=== PATIENT | female | born 1970 | race Hispanic/Latino ===

== ENCOUNTER → 2024-01-13 | Day surgery (SDC) | payer OTHER ==
[~2024-01-13] MED LIST: HYOSCYAMINE SULFATE 0.5 MG/ML INJ ONE; KETAMINE HCL INJ 50 MG/ML 10 ML VIAL ONE; LIDOCAINE HCL 2% LOCAL INJ 5 ML SDV VIAL INJ ONE; LIPITOR10 MG PO; PROPOFOL IV EMULSION 10 MG/ML 50 ML VIAL IV ONE
[2024-01-13] MEDS: LACTATED RINGER'S 1,000 ML ONE (13:05)
[2024-01-13 14:18] VITALS: TEMP 97.7
[2024-01-13 14:45] VITALS: BP 137/78; PULSE 76; RESP 16; O2SAT 98
== END | disposition home or self-care (01) ==
LOC: OR 12:15
PROVIDERS: ATTEND Internal Medicine Gastroenterology
DX: Z12.11 Encounter for screening for malignant neoplasm of colon (principal); K57.30 Diverticulosis of large intestine without perforation or abscess without bleeding; K64.8 Other hemorrhoids; E78.5 Hyperlipidemia, unspecified; Z01.810 Encounter for preprocedural cardiovascular examination; Z79.899 Other long term (current) drug therapy; Z68.32 Body mass index [BMI] 32.0-32.9, adult
CPT/HCPCS: 45378; 93005; J1980; J2001; J2704; J7121